=== PATIENT | female | born 1955 | race Two or more races ===

== ENCOUNTER 2021-12-30 00:36 | Emergency (ER) | payer MEDICAID, OTHER ==
[~2021-12-30] VITALS: Ht 162.6 cm; Wt 61.2 kg
--- NOTE | 2021-12-30 00:49 | NUR ---
TO ER BED 9. [id number] FROM HOME FOR "WOKE UP SHAKING AND FEELING COLD W/ PANIC ATTACK". PT STATES "I FEEL MUCH CALMER UPON ARRIVAL TO HOSPITAL". DENIES ANY CHEST PAIN OR SOB. CONNECTED TO MONITOR. AWAITING MD PAT.
[2021-12-30] MEDS ORDERED: LORAZEPAM 1 MG TABLET ONE (01:56)
[2021-12-30] MEDS ORDERED: LORAZEPAM 1 MG TABLET PO ONE (02:00)
[2021-12-30] MEDS ORDERED: LORA-259 PO (02:01)
--- NOTE | 2021-12-30 02:10 | NUR ---
Patient discharged to home in stable condition. Written and verbal after care instructions given. Patient verbalizes understanding of instruction.
[2021-12-30 02:11] VITALS: BP 127/64
== END 2021-12-30 02:11 | disposition home or self-care (01) ==
LOC: ER 00:39
DX: F41.0 Panic disorder [episodic paroxysmal anxiety] (principal); I10 Essential (primary) hypertension; Z79.899 Other long term (current) drug therapy